=== PATIENT | female | born 1945 | race Caucasian/White ===

== ENCOUNTER 2016-06-07 12:18 | Day surgery (SDC) | payer OTHER ==
[~2016-06-07] VITALS: Ht 149.9 cm; Wt 58.7 kg
[2016-06-07] MEDS ORDERED: LISINOPRIL (13:37)
[2016-06-07 13:45] VITALS: Ht 149.9 cm; Wt 58.7 kg
[2016-06-07 14:22] VITALS: BP 134/68; PULSE 64; RESP 19
[2016-06-07 15:45] VITALS: BP 135/84; PULSE 63; RESP 16
--- NOTE | 2016-06-07 15:52 | GILP ---
DATE OF PROCEDURE: 06/07/2016 PREOPERATIVE DIAGNOSIS: Screening colonoscopy. POSTOPERATIVE DIAGNOSIS: Incomplete colonoscopy due to obstruction in the left colon, severe divert iculosis, hemorrhoids, acute angulation versus mass affect in left colon, internal hemorrhoids, grad e II. DESCRIPTION OF PROCEDURE: The patient was put in left lateral decubitus after obtaining informed co nsent, was sedated with 1 mg of Versed, 75 mcg of fentanyl. We very carefully advanced an Olympus v ideo colonoscope to about 60 to 70 cm level. Could not go any further due to acute angulation mass effect. I was unable to pass the scope. Diverticulosis noted throughout the left colon, quite juan j re. Internal hemorrhoids noted in the rectum. Scope was withdrawn. Patient had no complication. Plan will be to consider a CT scan of the abdomen with Hypaque rectal contrast should be considered in this patient. Dictated By: QUINTON WILKERSON/BRENNA Conf#: [id number] DID#: [id number] CC: Louis Herron MD;*EndCC*
[2016-06-07] MEDS ORDERED: FENTAnyl 50 MCG/ML VIAL ONE (16:33)
[2016-06-07] MEDS ORDERED: MIDAZOLAM 1 MG/ML 2 ML INJ ONE (16:33)
== END 2016-06-07 16:48 | disposition home or self-care (01) ==
LOC: GIL 12:18
PROVIDERS: ATTEND Internal Medicine
DX: Z12.11 Encounter for screening for malignant neoplasm of colon (principal); I10 Essential (primary) hypertension
CPT/HCPCS: 45378; J2250; J3010